=== PATIENT | female | born 1950 | race Caucasian/White ===

== ENCOUNTER 2020-11-20 08:49 | Outpatient (CLI) | payer MEDICARE, SELFPAY ==
--- NOTE | 2020-11-20 08:57 | MM_ITS ---
WS: [id number] BILATERAL SCREENING DIGITAL MAMMOGRAM WITH CAD HISTORY: SCREENING COMPARISON: 12/20/2018, 11/12/2017 and 08/13/2016 Bilateral CC and MLO views submitted. Computer aided detection analyzed. Breast composition: The breasts are heterogeneously dense, which may obscure small masses. No suspici ous masses, microcalcifications or architectural distortion. Scattered asymmetries and areas of incre ased density are stable over multiple years. Benign calcifications. MM/[place] [id number] IMPRESSION: BI-RADS: 2-Benign FOLLOW UP: 1 Year Follow-up
== END 2020-11-20 08:50 | disposition home or self-care (01) ==
PROVIDERS: PCP Family Medicine; Visit Provider Family Medicine
DX: Z12.31 Encounter for screening mammogram for malignant neoplasm of breast (principal)
CPT/HCPCS: 77067

== ENCOUNTER 2021-04-21 12:20 | Emergency (ER) | payer MEDICARE, SELFPAY ==
[2021-04-21 13:14] VITALS: BP 163/94; PULSE 71; RESP 18; TEMP 36.7; O2SAT 95; BMI 29.2
[2021-04-21 16:47] LABS: Albumin Level 4.4 g/dL (3.5-5.2); Blood Urea Nitrogen 13 mg/dL (8-23); Calcium 9.2 mg/dL (8.5-10.5); Globulin 2.4 g/dL (1.3-4.6); Lipase 35 U/L (13-60); Sodium 143 mmol/L (136-145); Total Bilirubin 0.4 mg/dL (0.15-1.2); Total Protein 6.8 g/dL (6.6-8.7)
[2021-04-21 17:13] LABS: Carbon Dioxide 17 mmol/L (22-29); Chloride 109 mmol/L (98-107); Glucose 123 mg/dL (65-115); Osmolality Calculated 297 mOsm/kg (285-295)
[2021-04-21 17:14] LABS: Alanine Aminotransferase 12 U/L (0-33); Alkaline Phosphatase 111 IU/L (35-105)
[2021-04-21 17:15] LABS: Aspartate Amino Transferase 23 U/L (0-32)
--- NOTE | 2021-04-21 17:56 | ED_ITS ---
HPI - Abdominal Pain General: Chief Complaint: Abdominal Pain Stated Complaint: SEVERE PAIN IN LEFT SIDE WITH VOMITTING Time Seen by Provider: 04/21/21 17:56 History of Present Illness: HPI narrative: 70-year-old female comes in today with complaints of left lower abdomen pain radiating into the left flank. Patient reports that it started about 9:00 this morning. Patient denies any fever or chills. Patient reports that hitting a bump on the road seems to aggravate the pain. Patient appears well. Patient appears in moderate pain. Patient does have a history of parathyroid removal. MD elicited complaint: abdominal pain and flank pain Onset (ago): hour(s) Pain Consistency: constant Location: L flank and Pelvis Severity: moderate Quality: sharp Radiation: L flank Migration to: LLQ Exacerbating factors: nothing Relieving factors: movement (Jerking movement) Context: history of similar episodes Review of Systems General: Reports: 10 or more systems reviewed and unremarkable except in HPI and below GI: Reports: abdominal pain : Reports: flank pain Physical Exam Const: COMMON NORMALS: no acute distress and patient oriented x3 GENERAL APPEARANCE: cooperative HENMT: COMMON NORMALS: normocephalic and Normal external nose present HEAD & SCALP: normal to inspection and normocephalic NOSE: Normal external nose present MOUTH: Normal oral and palatal mucosa present Eye: GENERAL EYE: appearance normal, both eyes and all related structures Neck/C-Spine: COMMON NORMALS: full ROM Chest: COMMONS NORMALS: normal inspection of the chest Resp: COMMON NORMALS: normal respiratory effort EFFORT & INSPECTION: Yes able to speak in complete sentences Cardio: COMMON NORMALS: regular rate and regular rhythm RATE: regular rate RHYTHM: regular rhythm GI: COMMON NORMALS: Soft to palpation AUSCULTATION: Yes normoactive bowel sounds PALPATION: Yes Soft to palpation and Yes Tenderness to palpation present (GI) Details: LLQ PERCUSSION: normal to percussion : BLADDER/KIDNEY EXAM: Yes CVA tenderness on the left Back/Pelvis: COMMON NORMALS: thoracic and lumbar spine normal to inspection GENERAL BACK: Yes CVA tenderness Extremity: COMMON NORMALS: normal to inspection Neuro: COMMON NORMALS: patient oriented x3 and moves all extremities Psych: COMMON NORMALS: mental status grossly normal and cooperative Skin: COMMON NORMALS: no rashes or lesions noted GENERAL SKIN EXAM: no rashes or lesions noted Course 2 ED course: 2009, reviewed exam with patient with CT report showing 4-5 mm obstructive proximal urinary calculi. Awaiting urine specimen to rule out urinary tract infection. Patient is afebrile. Patient reports improvement in pain since medication. Vital Signs: Vital signs: Vital Signs Temperature 98.1 F 04/21/21 13:14 Pulse Rate 81 04/21/21 19:30 Respiratory Rate 17 04/21/21 19:35 Blood Pressure 176/99 04/21/21 19:30 Pulse Oximetry 97 04/21/21 19:35 MDM - Abdominal Pain MDM Narrative: Medical decision making narrative: Patient comes in with left lower quadrant abdominal pain. On exam patient does have some left flank CVA tenderness and left lower abdomen pain. Respirations are even lungs are clear to auscultation. Vital signs are normal. Differential diagnosis includes renal stone, diverticulitis, small bowel obstruction, colitis. Laboratory values were notable for a mild elevation of white blood cell count at 11,000, urinalysis had a large amount of blood, CT scan noted a 4 mm stone in the left proximal ureter. Reviewed exam with patient with recommendations for treatment and follow-up with urology for further care. Patient reported understanding agreed to plan. Patient had improved pain and discomfort after treatment with morphine and Zofran. Differential Diagnosis: Differential diagnosis abdominal pain: Likely abdominal pain, calculus of kidney, diverticulitis and small bowel obstruction Lab Data: Labs: Lab Results 04/21/21 04/21/21 04/21/21 Range/Units 16:10 16:10 19:23 WBC Cancelled 11.7 H Corrected WBC Cancelled RBC Cancelled 4.45 Hgb Cancelled 14.0 Hct Cancelled 41.1 MCV Cancelled 92.4 MCH Cancelled 31.5 MCHC Cancelled 34.1 RDW Cancelled 12.5 Plt Count Cancelled 231 MPV Cancelled 11.4 H Gran % Cancelled Neut % (Auto) Cancelled 93.4 Lymph % (Auto) Cancelled 3.7 [place] % (Auto) Cancelled 2.3 Eos % (Auto) Cancelled 0.0 Baso % (Auto) Cancelled 0.3 Neut # (Auto) Cancelled 10.96 H Lymph # (Auto) Cancelled 0.4 L [place] # (Auto) Cancelled 0.3 Eos # (Auto) Cancelled 0.0 Baso # (Auto) Cancelled 0.0 Absolute Gran (aut o) Cancelled Nucleated RBC % (a uto) Cancelled 0 Nucleated RBCs # Cancelled 0.0 Sodium 143 (136-145) mmol/L Potassium 5.0 (3.5-5.1) mmol/L Chloride 109 H (98-107) mmol/L Carbon Dioxide 17 L (22-29) mmol/L Anion Gap 22.0 H (5-19) BUN 13 (8-23) mg/dL Creatinine 0.9 (0.5-0.9) mg/dL GFR Calculation Not Reportable Glucose 123 H (65-115) mg/dL Calculated Osmolal ity 297 H (285-295) mOsm/k g Calcium 9.2 (8.5-10.5) mg/dL Total Bilirubin 0.4 (0.15-1.2) mg/dL AST 23 (0-32) U/L ALT 12 (0-33) U/L Alkaline Phosphata se 111 H (35-105) IU/L Total Protein 6.8 (6.6-8.7) g/dL Albumin 4.4 (3.5-5.2) g/dL Globulin 2.4 (1.3-4.6) g/dL Lipase 35 (13-60) U/L Urine Color (Yellow) Urine Appearance (CLEAR) Urine pH (5-7) Ur Specific Gravit y (1.005-1.030) Urine Protein (Negative) Urine Glucose (UA) (Normal) Urine Ketones (Negative) Urine Blood (Negative) Urine Nitrate (Negative) Urine Bilirubin (Negative) Urine Urobilinogen (Negative) mg/dL Ur Leukocyte Darcy ase (Negative) Urine RBC (0-2) /hpf Urine WBC (0-5) /hpf Ur Squamous Epith Cells (0-5) /hpf Amorphous Sediment Urine Bacteria (NONE) /hpf Hyaline Casts /lpf Urine Mucus /hpf /14/ Range/Units 20:40 WBC Corrected WBC RBC Hgb Hct MCV MCH MCHC RDW Plt Count MPV Gran % Neut % (Auto) Lymph % (Auto) [place] % (Auto) Eos % (Auto) Baso % (Auto) Neut # (Auto) Lymph # (Auto) [place] # (Auto) Eos # (Auto) Baso # (Auto) Absolute Gran (aut o) Nucleated RBC % (a uto) Nucleated RBCs # Sodium (136-145) mmol/L Potassium (3.5-5.1) mmol/L Chloride (98-107) mmol/L Carbon Dioxide (22-29) mmol/L Anion Gap (5-19) BUN (8-23) mg/dL Creatinine (0.5-0.9) mg/dL GFR Calculation Glucose (65-115) mg/dL Calculated Osmolal ity (285-295) mOsm/k g Calcium (8.5-10.5) mg/dL Total Bilirubin (0.15-1.2) mg/dL AST (0-32) U/L ALT (0-33) U/L Alkaline Phosphata se (35-105) IU/L Total Protein (6.6-8.7) g/dL Albumin (3.5-5.2) g/dL Globulin (1.3-4.6) g/dL Lipase (13-60) U/L Urine Color Yellow (Yellow) Urine Appearance Clear (CLEAR) Urine pH 5 (5-7) Ur Specific Gravit y 1.030 (1.005-1.030) Urine Protein Neg (Negative) Urine Glucose (UA) Norm (Normal) Urine Ketones 1+ H (Negative) Urine Blood Neg (Negative) Urine Nitrate Negative (Negative) Urine Bilirubin Neg (Negative) Urine Urobilinogen Norm (Negative) mg/dL Ur Leukocyte Darcy ase Negative (Negative) Urine RBC >100 H (0-2) /hpf Urine WBC 0-4 H (0-5) /hpf Ur Squamous Epith Cells 0-4 H (0-5) /hpf Amorphous Sediment Not Reportable Urine Bacteria Trace (NONE) /hpf Hyaline Casts 0-4 H /lpf Urine Mucus 1+ /hpf Discharge Plan Discharge Patient Disposition: Home Clinical Impression: Calculus of kidney Condition: Stable Prescriptions: New tamsulosin 0.4 mg capsule 0.4 mg PO DAILY Qty: 7 RF: 0 hydrocodone-acetaminophen 5-325 mg tablet 1 tab PO Q6H PRN (Reason: pain) Qty: 14 RF: 0 ondansetron 4 mg tablet,disintegrating 4 mg PO Q8H PRN (Reason: nausea and vomiting) Qty: 10 RF: 0 Discharge Orders: Discharge ED (Routine); Ordered 04/21/21 Ordered By: Fabrice Hand Referrals: Hawa Pantoja MD [Primary Care Provider] - Discharge Diet: Usual diet Discharge Activity: Increase activity as tolerated Patient Instructions: Renal Colic (ED), Opioid Safety Activity Restrictions/Additional Instructions: Home with urine hat and strainer. Strain all urine. Use medication as directed. You may use acetaminophen or ibuprofen to help with your pain. Maintain normal activity as tolerated. Make sure to stay well-hydrated. Follow-up with urologist for further treatment. Return to the ER for high fever or uncontrolled pain. Coding Level of Care Code ED Pile Driver Operator for Radhag Fwd Exam Comprehensive
--- NOTE | 2021-04-21 18:01 | CTR_ITS ---
PROCEDURE INFORMATION: Exam: CT Abdomen And Pelvis Without Contrast Exam date and time: 04/21/2021 6:01 PM Age: 70 years old Clinical indication: Nausea and vomiting; Abdominal pain; Flank; Left; Prior surgery; Surgery type: Ovaries; Additional info: Left flank pain TECHNIQUE: Imaging protocol: Computed tomography of the abdomen and pelvis without contrast. Radiation optimization: All CT scans at this facility use at least one of these dose optimization techniques: automated exposure control; mA and/or kV adjustment per patient size (includes targeted exams where dose is matched to clinical indication); or iterative reconstruction. COMPARISON: No relevant prior studies available. RADIATION DOSE METRICS: Total DLP (mGy-cm): 1145.33 FINDINGS: Lungs: Ovoid subpleural opacity in the lingula measuring 7-8 mm diameter. Mediastinal space: Large hiatal hernia. Liver: Normal. No mass. Gallbladder and bile ducts: Cholelithiasis. Negative for biliary system dilation. Pancreas: Normal. No ductal dilation. Spleen: Normal. No splenomegaly. Adrenal glands: Normal. No mass. Kidneys and ureters: Hydronephrosis of the left kidney. Calcified stone in the proximal left ureter which measures 4-5 mm diameter. Inflammatory fat stranding changes around the left kidney and the proximal ureter. Mild diffuse bilateral renal cortical volume loss changes. Rounded circumscribed hyperdense lesion at the inferior margin of the left renal parenchyma measuring 2.3 cm x 2.3 cm. Isoattenuating homogeneous non simple appearance. Stomach and bowel: Unremarkable. No obstruction. No mucosal thickening. Appendix: No evidence of appendicitis. Intraperitoneal space: Unremarkable. No free air. No significant fluid collection. Vasculature: Unremarkable. No abdominal aortic aneurysm. Lymph nodes: Unremarkable. No enlarged lymph nodes. Urinary bladder: Unremarkable as visualized. Reproductive: Calcified subserosal fibroid. Bones/joints: Unremarkable. No acute fracture. Soft tissues: Unremarkable. CT/CT kidney stone [id number] IMPRESSION: 1. Obstructive uropathy of the left collecting system secondary to proximal left ureteral stone. 2. Incidental finding of a non simple left lower pole renal mass. Proteinaceous cyst or solid mass cannot be differentiated. Recommend non emergent outpatient renal ultrasound correlation. 3. Pulmonary nodule within the lingula. 4. For patients at low risk (minimal or absent history of smoking and of other known risk factors), recommend CT Chest at 6-12 months, then consider CT Chest at 18-24 months. For patients at high risk (history of smoking or of other known risk factors), recommend CT Chest at 6-12 months, then CT Chest at 18-24 months. (Reference: Del) 5. Large hiatal hernia. COMMENTS: Consistent with the [employer] [employer]'s Incidental Findings Committee white paper (J Am Glenn Radiol 2018): Any incidental renal lesion less than 1 cm or classified as too small to characterize, or any incidental cystic renal lesion characterized as simple-appearing, is likely benign. No follow-up imaging is recommended for these lesions per consensus recommendations based on imaging criteria. REFERENCES: Del Wylie, et al. Guidelines for Management of Incidental Pulmonary Nodules Detected on CT Images: From the Fleischner Society 2017. Radiology. 2017;284(1):228-243. Radiation Dose CTDIVOL = (mGy): DLP = 1145.33 (mGy-cm)
[2021-04-21 18:40] VITALS: BP 179/107; PULSE 82; RESP 20; O2SAT 100
[2021-04-21 19:30] VITALS: BP 176/99; PULSE 81; RESP 17; O2SAT 97
[2021-04-21 19:31] LABS: Basophils % 0.3 %; Hematocrit 41.1 % (37.0-47.0); Lymphocytes # 0.4 10^3/uL (0.8-4.8); Lymphocytes % 3.7 %; Mean Corpuscular HGB Conc 34.1 g/dL (30.0-36.0); Mean Corpuscular Hemoglobin 31.5 pg (28.0-34.0); Mean Corpuscular Volume 92.4 fL (81-99); Mean Platelet Volume 11.4 fL (7.4-10.4); Monocytes # 0.3 10^3/uL (0.2-0.9); Monocytes % 2.3 %; Neutrophils # 10.96 10^3/uL (1.8-7.7); Neutrophils % 93.4 %; Nucleated Red Blood Cells % 0 %; Platelet Count 231 10^3/cmm (130-400); Red Blood Count 4.45 10^6/uL (4.1-5.3); Red Cell Distribution Width 12.5 % (12.1-15.1); White Blood Count 11.7 10^3/uL (4.0-10.0)
[2021-04-21] MEDS: ondansetron 2 mg/ML SDV 2 mL 4 MG IVP (19:34)
[2021-04-21] MEDS: sodium chloride 0.9% 500 ML 999 ML IV (19:34)
[2021-04-21 19:35] VITALS: RESP 17; O2SAT 97
[2021-04-21] MEDS: morphine 4 mg/mL SDV 1 mL IVP (19:35)
[2021-04-21 21:04] LABS: Bacteria Urine TRACE /hpf; Bilirubin Urine Neg (Negative); Blood Urine Neg (Negative); Glucose Urine UA Norm (Normal); Hyaline Casts Urine 0-4 /lpf; Ketones Urine 1+ (Negative); Leukocyte Esterase Urine Negative (Negative); Mucus Urine 1+ /hpf; Nitrate Urine Negative (Negative); Protein Urine Neg (Negative); RBC Urine >100 /hpf (0-2); Squamous Epithelial Cell Urine 0-4 /hpf (0-5); Urine Appearance Clear (CLEAR); Urine Color Yellow (Yellow); Urobilinogen Urine Norm (Negative); WBC Urine 0-4 /hpf (0-5); pH Urine 5 (5-7)
[2021-04-21] MEDS: cefTRIAXone 1,000 MG in sodium chloride 0.9% (plus) 50 ML 100 MG IV (21:13)
--- NOTE | 2021-04-21 21:54 | PC.NURSE ---
Patient sent home with 4mg ondansetron tablet to take PO until she can get her prescription filled in the morning per provider order.
[2021-04-21 21:55] VITALS: BP 145/86; PULSE 70; RESP 16; TEMP 36.7; O2SAT 97
--- NOTE | 2021-04-22 09:46 | DCPLANNER ---
security services manager had message to schedule a follow up appointment for patient with Dr. Rojas, for renal stone. security services manager called the office of Dr. Rojas, spoke with Avani, gave clinic patients information. security services manager was told that patients information will be printed and reviewed. Clinic will call patient with appointment information.
--- NOTE | 2021-04-23 11:13 | DCPLANNER ---
Patient has a follow up appointment scheduled for Wednesday, April 23, 2021 at 4:[address] Rojas. Clinic will call patient with appointment information.
--- NOTE | 2021-05-14 07:42 | DCPLANNER ---
Patient had a follow up appointment scheduled for 04.23.[address] Rojas - patient did attend appointment.
== END 2021-04-21 21:58 | disposition home or self-care (01) ==
PROVIDERS: Physician Assistant; Emergency Provider Nurse Practitioner Family; PCP Family Medicine
DX: N20.0 Calculus of kidney (principal)
CPT/HCPCS: 36415; 74176; 80053; 81001; 83690; 85025; 96365; 96375; 99284; J0696; J2270; J2405; J7040

== ENCOUNTER 2021-04-23 15:28 | Outpatient (CLI) | payer MEDICARE, SELFPAY ==
--- NOTE | 2021-04-23 15:46 | XR_ITS ---
WS: [id number] Exam: XR KUB [id number] Date/Time of Exam: 04/23/2021 4:08 PM Reason For Exam: KIDNEY STONE No bowel obstruction or free air. Visualized organ margins are intact. No obvious calcifications proj ected over the kidneys. A 3 x 7 mm triangular-shaped calcification seen in the left pelvis could repr esent a urinary tract stone. One large amorphous calcification may represent a calcified fibroid. Add itional indeterminate calcifications are noted. Moderate distention of the urinary bladder. Moderate amount retained stool in the colon. Degenerative changes of the L-spine. XR/XR KUB [id number] IMPRESSION: 1. 3 x 7 mm triangular-shaped calcification in the left pelvis that might repre sent the patient's known left urinary tract stone. There are additional pelvic calcifications which are nonspecific. 2. No calcifications projected over the kidneys. Constipation. No acute abdomin al process.
== END 2021-04-23 15:29 | disposition home or self-care (01) ==
LOC: RAD 15:40
PROVIDERS: PCP Family Medicine; Visit Provider Urology
DX: N20.0 Calculus of kidney (principal)
CPT/HCPCS: 74018; 81003

== ENCOUNTER 2021-04-28 10:04 | Outpatient (CLI) | payer MEDICARE, SELFPAY ==
--- NOTE | 2021-04-28 10:17 | XRR_ITS ---
PROCEDURE INFORMATION: Exam: XR Abdomen Exam date and time: 04/28/2021 10:17 AM Age: 70 years old Clinical indication: Condition or disease; Kidney or ureter condition; Calculus (stone) in ureter; Prior surgery; Surgery type: Ovaries removed; Patient HX: Left sided pain; Additional info: Ureteral stone TECHNIQUE: Imaging protocol: XR of the abdomen. Views: Frontal supine view of the abdomen. 1 View. COMPARISON: OR XR KUB [id number] 04/23/2021 4:08 PM FINDINGS: Gastrointestinal tract: No dilated gas-filled loops of bowel. Moderate amount of stool throughout the colon. Intraperitoneal space: Pre-existing nonspecific coarse right pelvic calcification. Organs: Calcified uterine leiomyoma. There is a lentiform calcification in the lower left pelvis measuring 7 mm x 3 mm in size not accounting for magnification. This might be a distal left ureteral calculus. Bones/joints: Curvature of the lumbar spine convex to the left associated with multilevel disc degeneration and facet arthropathy. XR/XR KUB [id number] IMPRESSION: Possible distal left ureteral calculus. Consider noncontrast CT ABDOMEN/PELVIS.
== END 2021-04-28 10:05 | disposition home or self-care (01) ==
PROVIDERS: PCP Family Medicine; Visit Provider Urology
DX: N20.1 Calculus of ureter (principal)
CPT/HCPCS: 74018; 81003

== ENCOUNTER 2021-05-14 15:42 | Outpatient (CLI) | payer MEDICARE, SELFPAY ==
--- NOTE | 2021-05-14 15:30 | XR_ITS ---
WS: [id number] KUB, AP view, 05/14/2021 Clinical Data: URETERAL CALCULUS Comparison: KUB, 04/28/2021. Findings: No abnormal intraabdominal masses are seen. There is no dilatated small bowel or evidence of obstruc tion. There is a calcification in the mid true pelvis consistent with a leiomyoma. There is a 2.0 cm right true pelvis calcification which is outside the urinary system. There is a 0.3 x 0.7 calcification in the lower true pelvis unchanged. No definite renal calcifications are seen. Fecal material in colon g as obscures detail over the kidneys. XR/XR KUB [id number] Impression: Multiple pelvic calcifications representing one, a leiomyoma, two, right amorph ous nonurinary 2.0 cm calcification and three, a possible distal left UVJ calcu fiona.
== END 2021-05-14 15:43 | disposition home or self-care (01) ==
LOC: RAD 15:49
PROVIDERS: PCP Family Medicine; Visit Provider Urology
DX: N20.1 Calculus of ureter (principal)
CPT/HCPCS: 74018; 81003

== ENCOUNTER → 2021-05-16 11:03 | Outpatient (BNVA) | payer MEDICARE, SELFPAY | PROVIDERS: PCP Family Medicine; Visit Provider Urology | DX: N20.1 Calculus of ureter (principal); Z20.822 Contact with and (suspected) exposure to COVID-19 | CPT/HCPCS: 87635 ==

== ENCOUNTER 2021-05-21 13:35 | Outpatient (CLI) | payer MEDICARE, SELFPAY ==
--- NOTE | 2021-05-21 14:00 | XR_ITS ---
WS: [id number] KUB, AP view, 05/21/2021 Clinical Data: URETERAL CALCULUS Comparison: KUB, 05/14/2021. Findings: No abnormal intraabdominal masses are seen. There is no dilatated small bowel or evidence of obstruct ion. No calcifications overlie the kidneys. There are still 3 calcifications in the true pelvis. There is a calcified leiomyoma, a 2.0 cm pelvic calcification outside the urinary tract and a linear left calcification which may be in the distal le ft ureter. XR/XR KUB [id number] Impression: No change in 3 calcifications in the true pelvis.
== END 2021-05-21 13:36 | disposition home or self-care (01) ==
LOC: RAD 13:41
PROVIDERS: PCP Family Medicine; Visit Provider Urology
DX: N20.1 Calculus of ureter (principal)
CPT/HCPCS: 74018

== ENCOUNTER 2021-05-22 10:29 | Day surgery (SDC) | payer MEDICARE, SELFPAY ==
[2021-05-21 08:46] VITALS: BMI 27.8
[2021-05-22] VITALS (7 sets, daily range): BP systolic 119–137; BP diastolic 73–88; PULSE 67–87; RESP 15–18; TEMP 36.1–36.8; O2SAT 91–98
--- NOTE | 2021-05-22 | SCC_ITS ---
Procedure Done: 1. Cystoscopy, LEFT: Retrograde pyelogram 2. LEFT ureteroscopy stone manipulation, stent (4.5 Faroese by 24 cm double- pigtail without string) 22.6 seconds of fluoroscopic guidance, for a cumulative dose of 5.25 mGy, was provided to Dr. Rojas by the radiology department. C-arm images of the abdomen were saved for the patient's permanent record. [facility]
--- NOTE | 2021-05-22 10:33 | SC_ITS ---
WS: [id number] C-arm fluoroscopy for left retrograde urogram, 05/22/2021 Clinical Data: Left ureteroscopy Comparison: KUB, 05/21/2021 Findings: The left retrograde urogram shows a defect in the distal left ureter which probably represents a smal l calculus. The left ureteral stent is shown in the left renal pelvis. SC/C-arm FL for Urology Impression: 1. Left ureteral stent placement. 2. Distal left ureteral calculus.
--- NOTE | 2021-05-22 12:15 | ANES.PREANE2 ---
Pre-Anesthetic Assessment Pre-Anesthetic Assessment: Height/Weight: Height 1.59 m Weight 70.307 kg Temp Pulse Resp BP Pulse Ox 98.2 F 77 16 137/88 97 05/22/21 10:51 05/22/21 10:51 05/22/21 10:51 05/22/21 10:51 05/22/21 10:51 Preop Diagnosis: Refractory left distal ureteral stone Proposed Procedure: Operation Date: 05/22/21 12:00 Proposed Procedures p Laser Lithotripsy [id number] n20.1(Not Applicable) - Syd Rojas MD s Cystoscopy(Not Applicable) - Syd Rojas MD s Retrograde Pyelogram(Left) - MD kathleen Sanchez Ureteroscopy(Not Applicable) - Syd Rojas MD s Ureteral Stent Placement(Not Applicable) - Syd Rojas MD Was Beta Arleth taken within 24 hours: N/A Was Clonidine taken within 24 hours: N/A Last intake: Intake Last Liquid Date 05/22/21 Last Liquid Time 06:00 Last Solid Date 05/21/21 Last Solid Time 22:00 Exam: Pre-Anes Outpt Exam: alert, oriented x 3, clear to auscultation bilaterally and regular rate & rhythm Airway: Submandibular: WNL Cervical ROM: WNL MP: 2 Dentition: Full History/ROS: No significant history except as noted : Comments: Kidney stones Neuropsych: Neuropsych: Anxiety Anesthetic Plan: ASA status: 2 Anesthesia: General Other: Patient describes PTSD with needle sticks so plan inhalatoin induction Risk of > 500 ml blood loss (7ml/kg in children): No PFSH Anesthesia PFSH: Medical History Left ureteral calculus Family History Mother , IN HER 80'S HX OF COLON AND BREAST CANCER Cancer Father , IN HIS 80'S. HX OF HEART MURMUR CAD (coronary artery disease) Sister Cancer BREAST CANCER Social History Alcohol intake: never Marital status: Current occupational status: employed History of recent travel: No Data Anesthesia Cardiac Studies: No Data to Display
--- NOTE | 2021-05-22 12:20 | P.HPUD_ITS ---
Surgery/Procedure H&P Update DATE OF PROCEDURE: May 22, 2021 DATE H&P PERFORMED: 05/14/21 H&P UPDATE INFORMATION: I have reviewed H&P completed within last 30 days, I have examined patient prior to procedure, No changes to prior documentation and H&P is in [facility] [place] EMR on date indicated PREOP DIAGNOSIS: Refractory left distal ureteral stone PLANNED PROCEDURE: Operation Date: 05/22/21 12:00 Proposed Procedures p Laser Lithotripsy [id number] n20.1(Not Applicable) - Syd Rojas MD s Cystoscopy(Not Applicable) - MD kathleen Sanchez Retrograde Pyelogram(Left) - MD kathleen Sanchez Ureteroscopy(Not Applicable) - MD kathleen Sanchez Ureteral Stent Placement(Not Applicable) - Syd Rojas MD Related Problem List Diagnoses (1) Left ureteral calculus:
--- NOTE | 2021-05-22 12:24 | P.OP_ITS ---
Operative Report Date of procedure: May 22, 2021 Pre-op Diagnosis: Refractory left distal ureteral stone Post-op diagnosis: same Procedure Done: 1. Cystoscopy, LEFT: Retrograde pyelogram 2. LEFT ureteroscopy stone manipulation, stent (4.5 Burmese by 24 cm double- pigtail without string) Surgeon: Bob Anesthesia: General Estimated blood loss: Minimal Urine output: Not measured Complications: None Findings: Stone in the expected position. Removed without fragmentation. Condition: stable Disposition: PACU Brief History: Era is a very pleasant 71-year-old white female with a recently diagnosed left ureteral stone initially in the left proximal ureter with progression into the left distal ureter. She chose conservative management but failed to pass a stone over an extended period of time of conservative therapy. Ultimately was recommended to proceed with treatment given the lack of progression. We elected endoscopic treatment as initial choice. Procedure: After routine preoperative evaluation examination and obtaining of informed consent she was taken to the operating suite on 05/22/2021 where general anesthesia was administered without difficulty after appropriate timeout was performed, SCDs confirmed to be functioning, preoperative antibiotics administered, beta-siddhartha protocol confirmed. Prepped and draped in usual sterile fashion in dorsolithotomy position paying careful attention to avoiding pressure points. 21 Burmese cystoscope with 30 degree lens was introduced into the urethra meatus and advanced into the bladder under videoscopy. An 8 Burmese cone-tip catheter was intubated to the left ureteral orifice for a left retrograde ureteropyelogram demonstratin. Filling defect consistent with a stone in the expected position 2. Mild dilation proximal to that without other filling defects noted. Flexible tip guidewire was then advanced up the left ureter bypassing the stone and curling in the area of the renal pelvis. Based on the size of the ureteral orifice it was decided to dilate with a balloon catheter. 15 Burmese 4 cm balloon was selected. Distal ureter dilated easily. Bladder was drained and the wire was secured to the drapes as a safety wire. Offset semirigid ureteroscope was then advanced up the left ureter next to the wire where the stone was encountered. Appeared to be narrow enough to be able to withdraw without fragmentation and a 3 Burmese grasping forcep utilized to secure the stone and it was removed with absolutely no tension. The scope was repassed and no additional stone or fragments were noted. Inspection of the distal ureter revealed enough edema of the distal ureter to leave a stent indwelling at the completion of procedure for healing purposes. A 4.5 Burmese 24 cm double-pigtail stent was advanced over the guidewire through the cystoscope into appropriate position as confirmed via fluoroscopy and cystoscopy. Bladder was drained and the procedure was completed. She tolerated procedure well without complications and was awakened in the operating room and returned to the recovery in stable condition. PLANS: 1. Discharge from outpatient surgery is anticipated for today. 2. Follow-up next week for cystoscopy and stent removal
[2021-05-22] MEDS: levofloxacin-dextrose 5 % 500 MG/100 ML PREMIX 100 MG IV (12:27)
[2021-05-22] MEDS: iohexol 300 mg/mL 50 mL Btl (OR ONLY) XX (12:45)
--- NOTE | 2021-05-22 16:34 | ANE.PACU2 ---
Inpatient post-anesthesia follow up: Airway intact: Yes Vital signs: Temperature 97.8 F Pulse Rate 67 Respiratory Rate 16 Blood Pressure 121/80 Pulse Oximetry 95 Oxygen Delivery Me thod Room Air Oxygen Flow Rate Fraction of Inspir ed Oxygen Hydration adequate: Yes Nausea and vomiting: No Pain level: 2 Mental status: Baseline
== END 2021-05-22 13:50 | disposition home or self-care (01) ==
PROVIDERS: PCP Family Medicine; Visit Provider Urology
PROC: 0TJB8ZZ Inspection of Bladder, Via Natural or Artificial Opening Endoscopic (ICD-10-PCS; CPT 52000; 2021-05-22 12:00)
PROC: (CPT 74420; 2021-05-22 12:00)
PROC: 0TJ98ZZ Inspection of Ureter, Via Natural or Artificial Opening Endoscopic (ICD-10-PCS; CPT 52351; 2021-05-22 12:00)
PROC: (CPT 50605; 2021-05-22 12:00)
PROC: (CPT 52332; 2021-05-22 12:00)
DX: N20.1 Calculus of ureter (principal)
CPT/HCPCS: 52332; 52352; 76000; 82365; 88300; C2625; J1956; J2405; J3010

== ENCOUNTER → 2021-05-30 10:27 | Outpatient (BNVA) | payer MEDICARE, SELFPAY | PROVIDERS: PCP Family Medicine; Visit Provider Urology | DX: N20.1 Calculus of ureter (principal); Z96.0 Presence of urogenital implants | CPT/HCPCS: 81003 ==

== ENCOUNTER 2021-12-02 14:55 | Outpatient (CLI) | payer MEDICARE, SELFPAY ==
--- NOTE | 2021-12-02 14:30 | XR_ITS ---
WS: [email or web address] KUB, AP view, 12/02/2021 Clinical Data: LEFT URETERAL CALCULUS Comparison: KUB, 05/21/2021. Findings: No definite renal calcifications are seen. There are calcifications of the true pelvis. One calcifica tion which is solid and measures 2.8 cm lies outside the urinary system. 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 There is a large amount of fecal material obscuring detail over both kidneys. No bowel dilatation or bowel obstruction is seen. XR/XR KUB [id number] Impression: 1. Negative for renal calcifications. 2. 2 nonurinary pelvic calcifications unchanged.
== END 2021-12-02 14:56 | disposition home or self-care (01) ==
LOC: RAD 14:58
PROVIDERS: PCP Family Medicine; Visit Provider Urology
DX: N20.1 Calculus of ureter (principal)
CPT/HCPCS: 74018; 81003

== ENCOUNTER 2021-12-26 09:52 | Outpatient (CLI) | payer MEDICARE, SELFPAY ==
--- NOTE | 2021-12-26 09:59 | US_ITS ---
WS: [email or web address] ULTRASOUND RENAL TECHNIQUE: Ultrasound examination of both kidneys. CLINICAL INFORMATION: RENAL LESION COMPARISON: April 21, 2021 FINDINGS: RIGHT: Right kidney is normal in size and appearance. Echogenicity: Normal. Cortical thickness: cm; Normal. Hydronephrosis: None. Perinephric fluid: None. Right kidney measures: 9.6 cm x 6.4 cm x 4.6 cm. LEFT:Slightly complex cyst lower pole LEFT kidney measuring 2.0 x 2.0 x 1.6 cm with a single septatio n. This corresponds to the abnormality seen on the prior noncontrast CT. Left kidney is normal in size and appearance. Echogenicity: Normal. Cortical thickness: cm; Normal. Hydronephrosis: None. Perinephric fluid: None. Left kidney measures: 9.2 cm x 6.1 cm x 4.5 cm. Normal visualized aorta. Normal bladder US/US renal BI* [id number] IMPRESSION: 1. No hydronephrosis in either kidney. 2. Normal bladder. 3. Slightly complex cyst lower pole LEFT kidney measuring 2.0 x 2.0 x 1.6 cm with a single septation. This corresponds to the abnormality seen on the prior CT.
== END 2021-12-26 09:53 | disposition home or self-care (01) ==
PROVIDERS: PCP Family Medicine; Visit Provider Urology
DX: N28.9 Disorder of kidney and ureter, unspecified (principal); N20.9 Urinary calculus, unspecified; Q61.01 Congenital single renal cyst
CPT/HCPCS: 76770; 81003

== ENCOUNTER 2022-01-20 10:26 | Outpatient (CLI) | payer MEDICARE, SELFPAY ==
--- NOTE | 2022-01-20 10:35 | MM_ITS ---
WS: [email or web address] Bilateral screening 3D tomosynthesis digital mammogram, 01/20/2022 Clinical Data: SCREENING Comparison: 11/20/2020, 12/20/2018, 11/12/2017, 08/13/2016, 05/02/2014, 11/17/2012, 10/29/2010, 09/02/2029. Findings: The breast parenchymal pattern shows heterogeneous density No spiculated masses or clustered calcific ations are seen. There are no secondary signs of carcinoma. MM/[place] [id number] Impression: 1. Negative bilateral mammogram unchanged. 2. Recommend annual screening mammograms. BIRADS: 1-Negative FOLLOW UP: 1 Year Follow-up The CAD bingo checker was used.
== END 2022-01-20 10:27 | disposition home or self-care (01) ==
LOC: LAB 10:29
PROVIDERS: PCP Family Medicine; Visit Provider Family Medicine
DX: Z12.31 Encounter for screening mammogram for malignant neoplasm of breast (principal)
CPT/HCPCS: 77063; 77067

== ENCOUNTER 2022-12-28 13:12 | Outpatient (CLI) | payer MEDICARE, SELFPAY ==
--- NOTE | 2022-12-28 13:40 | XR_ITS ---
WS: [email or web address] Exam: XR KUB [id number] Date/Time of Exam: 12/28/2022 2:07 PM Reason For Exam: Urolithiasis No bowel obstruction or free air. No calcifications superimpose the renal silhouettes. 2 large pelvic calcifications unchanged in appearance. No sign of organ enlargement. Degenerative changes of the tanya mbar spine and mild levoscoliosis XR/XR KUB [id number] IMPRESSION: 1. No acute abdominal process. 2. 2 large pelvic calcifications noted which apparently are not within the urin jazmine tract. These of been described previously.
--- NOTE | 2022-12-28 14:15 | US_ITS ---
WS: [email or web address] RENAL ULTRASOUND HISTORY: Complex Renal Cyst COMPARISON: 12/26/2021 TECHNIQUE: 2-D and color Doppler imaging of the kidney submitted. Right kidney: 10.0 cm x 4.5 cm x 4.2 cm. Normal echogenicity with no hydronephrosis or mass. No cortical thinning or atrophy. Left kidney: 10.3 cm x 4.0 cm x 5.6 cm. Normal size kidney. No hydronephrosis. Minimally complex cyst lower pole LEFT kidney measures 2.2 x 1 .8 x 2.4 cm. A slight increase in size since the prior study. There is a very thin septation present. No solid component. No increased vascularity. Aorta: Normal. Urinary Bladder: Not distended. No free fluid in the pelvis. US/US renal BI* [id number] IMPRESSION: 1. Very slight increase in size of the complex cyst lower pole LEFT kidney sin ce 12/26/2021. Very thin septation within this cyst. 2. No hydronephrosis or solid mass.
== END 2022-12-28 13:13 | disposition home or self-care (01) ==
PROVIDERS: PCP Family Medicine; Visit Provider Urology
DX: N20.9 Urinary calculus, unspecified (principal); N28.1 Cyst of kidney, acquired
CPT/HCPCS: 74018; 76770; 81003; 99213

== ENCOUNTER 2023-01-21 08:01 | Outpatient (CLI) | payer MEDICARE, SELFPAY ==
--- NOTE | 2023-01-21 08:08 | MM_ITS ---
WS: [email or web address] BILATERAL SCREENING DIGITAL TOMOSYNTHESIS MAMMOGRAM WITH CAD HISTORY: SCREENING COMPARISON: 01/20/2022 on 11/20/2020 Bilateral CC and MLO views with tomosynthesis and synthetic mammography submitted. Computer aided det ection analyzed. Breast composition: The breasts are heterogeneously dense, which may obscure small masses. No suspici ous masses, microcalcifications or architectural distortion. Benign calcifications. MM/[place] [id number] IMPRESSION: BI-RADS: 2-Benign FOLLOW UP: 1 Year Follow-up
== END 2023-01-21 08:02 | disposition home or self-care (01) ==
LOC: RAD 08:03
PROVIDERS: PCP Family Medicine; Visit Provider Family Medicine
DX: Z12.31 Encounter for screening mammogram for malignant neoplasm of breast (principal)
CPT/HCPCS: 77063; 77067

== ENCOUNTER 2023-04-09 15:27 | Outpatient (CLI) | payer MEDICARE, SELFPAY ==
--- NOTE | 2023-04-09 15:41 | XR_ITS ---
WS: [email or web address] SCREENING DEXA SCAN [employer] CLINICAL INFORMATION: POSTMENOPAUSAL COMPARISON: 2019 FINDINGS: The L1-L4 bone mineral density measures . This corresponds to a T score score of and Z score of . Left femoral neck bone mineral density measures 0.833 g/cm2. This corresponds to a T score of -1.4 an d Z score of 0.1. Right femoral neck bone mineral density measures 0.873 g/cm2. This corresponds to a T score -1.1of an d Z score of 0.4. Mean femoral neck bone mineral density measures 0.853 g/cm2. This corresponds to a T score of -1.2 an d Z score of 0.2. XR/XR DEXA axial skeleton* [id number] IMPRESSION: Normal bone mineralization lumbar spine. Osteopenia femoral necks. Patient's FRAX calculated 10 year probability for major osteoporotic fracture i s 12.5 % and osteoporotic hip fracture is 3.1%. Bone mineral density lumbar spine increased 10.4% since 2019 Bone mineral density in the femoral necks increased 1.9% since 2019
== END 2023-04-09 15:28 | disposition home or self-care (01) ==
PROVIDERS: PCP Family Medicine; Visit Provider Family Medicine
DX: Z13.820 Encounter for screening for osteoporosis (principal); Z78.0 Asymptomatic menopausal state; M85.852 Other specified disorders of bone density and structure, left thigh; M85.851 Other specified disorders of bone density and structure, right thigh
CPT/HCPCS: 77080

== ENCOUNTER 2024-01-27 08:19 | Outpatient (CLI) | payer OTHER, SELFPAY ==
--- NOTE | 2024-01-27 08:24 | MM_ITS ---
WS: [email or web address] Bilateral screening 3D tomosynthesis digital mammogram, 01/27/2024 Clinical Data: SCREENING Comparison: 01/21/2023, 01/20/2022, 11/20/2020, 12/20/2018, 11/12/2017, 08/13/2016, 05/02/2014, 11/17/2012, , 09/02/2009. Findings: The breast parenchymal pattern shows heterogeneous density. No spiculated masses or clustered calcifi cations are seen. There are no secondary signs of carcinoma. Impression: 1. Negative bilateral mammogram unchanged. 2. Recommend annual screening mammograms. MM/[place] [id number] BIRADS: 1-Negative FOLLOW UP: 1 Year Follow-up The CAD cylinder checker was used.
== END 2024-01-27 08:20 | disposition home or self-care (01) ==
LOC: RAD 08:20
PROVIDERS: PCP Family Medicine; Visit Provider Family Medicine
DX: Z12.31 Encounter for screening mammogram for malignant neoplasm of breast (principal)
CPT/HCPCS: 77063; 77067

== ENCOUNTER 2025-02-28 07:52 | Outpatient (CLI) | payer MEDICARE, SELFPAY ==
--- NOTE | 2025-02-28 07:58 | MM_ITS ---
WS: [email or web address] BILATERAL SCREENING DIGITAL TOMOSYNTHESIS MAMMOGRAM WITH CAD HISTORY: SCREENING COMPARISON: 01/27/2024, 01/21/2023 Bilateral CC and MLO views with tomosynthesis and synthetic mammography submitted. Computer aided detection analyzed. Breast composition: The breasts are heterogeneously dense, which may obscure small masses. No suspicious masses, microcalcifications or architectural distortion. Scattered asymmetries and calcifications are stable. No interval change or progression. MM/MM scr tomosynthesis [id number] IMPRESSION: BI-RADS: 2 - Benign FOLLOW UP: 1 Year Follow-up
== END 2025-02-28 07:53 | disposition home or self-care (01) ==
PROVIDERS: PCP Family Medicine; Visit Provider Family Medicine
DX: Z12.31 Encounter for screening mammogram for malignant neoplasm of breast (principal); R92.333 Mammographic heterogeneous density, bilateral breasts; N64.89 Other specified disorders of breast; R92.1 Mammographic calcification found on diagnostic imaging of breast
CPT/HCPCS: 77063; 77067